=== PATIENT | female | born 1975 | race Caucasian/White ===

== ENCOUNTER 2018-03-11 10:23 | Day surgery (SDC) | payer OTHER ==
[2018-03-09 15:07] LABS: Absolute Lymphocytes (CBC) 2.9 K/uL (0.7-4.9); Absolute Monocytes 0.7 K/uL (0.1-1.3); Absolute Neutrophil 5.5 K/uL (1.8-8.0); Basophils % 0.2 % (0-1.3); Eosinophils % 0.6 % (0-4.4); Hematocrit 39.9 % (36.0-45.0); Lymphocytes % 31.5 % (15.3-44.8); MCH 31.4 pg (27.0-35.0); MCV 94.7 fL (80-100); MPV 9.3 fL (7.6-11.3); Monocytes % 7.2 % (3.3-12.3); RBC Red Blood Cell Count 4.21 M/uL (3.86-4.86)
[2018-03-09 15:19] LABS: BUN Blood Urea Nitrogen 20 mg/dL (6-20); Bicarbonate 27 mEq/L (21-31); Glucose Level 75 mg/dL (65-120); Sodium Level 135 mEq/L (135-145)
[2018-03-11] MEDS ORDERED: CEFAZOLIN/SWI 1gm 1 GM/10 ML SYR ONE (10:33)
[2018-03-11] MEDS ORDERED: Ringers Lactate 1,000 ML IV ONE (10:33)
[2018-03-11] MEDS ORDERED: PROPOFOL 200 MG/20 ML VIAL IV ONE (12:04)
[2018-03-11] MEDS ORDERED: FENTANYL CITR 100 MCG/2 ML ONE (12:04)
[2018-03-11] MEDS ORDERED: ROCURONIUM 50 MG/5 ML VIAL IV ONE (12:05)
[2018-03-11] MEDS ORDERED: ONDANSETRON HCL 40 MG/20 ML VIAL ONE (12:05)
[2018-03-11] MEDS ORDERED: MIDAZOLAM HCL 2 MG/2 ML INJ ONE (12:05)
[2018-03-11] MEDS ORDERED: LIDOCAINE 1% MPF 2 ML AMPULE ONE (12:05)
[2018-03-11] MEDS ORDERED: BUPIVACA 0.5%/EPI 0.0005%/PF 10 ML VIAL ONE (12:35)
[2018-03-11] MEDS ORDERED: DEXAMETHASONE 10 MG/ML VIAL ONE (12:40)
[2018-03-11] MEDS ORDERED: EPHEDRINE SULF 50 MG/5 ML SYR ONE (13:17)
--- NOTE | 2018-03-11 13:46 | P.BOP ---
Preoperative diagnosis: right shoulder pain/impingement/partial RCT Postoperative diagnosis: same Primary procedure: right shoulder arthoscopy/debridemtent/ miniopen sad/rcr Estimated blood loss: 10ccs Findings: as above Anesthesia: General Transferred to: Recovery Room Condition: Good
[2018-03-11] MEDS: MEPERIDINE HCL 50 MG/ML AMP ONE ×2 (14:15→14:22)
--- NOTE | 2018-03-11 14:26 | OP ---
Date of Procedure: 03/11/2018 Surgeon: Toan Leonard MD Preoperative Diagnosis: Right shoulder pain with impingement, probable partial rotator cuff tear. Postoperative Diagnosis: Right shoulder pain with impingement, probable partial rotator cuff tear. Procedure: Right shoulder arthroscopic debridement with mini open subacromial decompression and plac ement of stitch into the rotator cuff. Estimated Blood Loss: 10 cc. Complications: There were no complications. Specimens: No pathology specimen. Indication For Operation: Ms. Win is a 42-year-old female, who has had problems with her shoulder for a quite sometime. This persisted despite extensive rehabilitative efforts and also including inj ections and medications. All risks, benefits, and alternatives have been discussed with her. She st ates she understands everything as presented and wishes to proceed. Description Of Procedure: The patient was taken to the operating room and placed in supine position. General anesthesia was obtained by staff. Following this, she was then placed in a beach chair pos ition with anesthesia being careful to position the head and neck properly. All her bony prominences were checked. Following this, the right upper extremity was then prepped and draped in the usual st erile fashion for the procedure. Standard posterior arthroscopy portals were made carefully atraumat ically with 1 pass, which allowed for examination of the shoulder. Shoulder was examined and found t o be some fraying of the biceps anchor, both anterior and posterior to the biceps anchor. Also, ther e was some slight fraying of the undersurface of the rotator cuff. An anterior portal was then made under direct vision with care being taken to remain lateral to the coracoid. Through this portal, sa me was used to debride the frayed area of the biceps and undersurface of the rotator cuff; however, t here was no indication of the biceps and otherwise doing quite well. There was no tenotomy even cons idered. Following this, the arthroscopic instruments were removed. The posterior arthroscopy portal was stapled shut. The arm was then re-prepped, and all gloves and instruments were changed. A gloria dard anterior incision was then taken down carefully through skin and soft tissues. Meticulous hemos tasis being maintained using Bovie electrocautery. This leads down to the acromion. A small portion of the deltoid was then removed from the acromion and the coracoacromial ligament was divided. This allowed for visualization of the subacromial space, which does have quite an extensive amount of bur celina tissue, which was then removed. Once the bursal tissue was removed, an anterior acromioplasty wa s performed followed by subacromial acromioplasty. This was done until the outlet was very smooth wi thout sign of any downward slope or obstruction. After this, the rotator cuff itself was explored th roughout its entire footprint and no obvious rotator cuff tear was seen. There did appear to be an a nora anteriorly, which may have some feeling of decreased strength and an Ethibond suture was then meghna adonis in this area. It is cut short and continued to be observed. No other areas were easily seen. T he deltoid was then repaired back to the acromion via bone tunnel and Ethibond followed by over-sewin g with Vicryl. Skin was then closed with Vicryl followed by anthony. The Marcaine with epinephrine was then placed throughout the incisions and the patient was placed in a well-padded sterile dressing as well as shoulder immobilizer, awakened, and taken to recovery room in good condition. There were no complications. /LAURA Voice ID: [id number] Report ID: [id number]
[2018-03-11] MEDS: MORPHINE 4 MG/ML SYR ONE ×2 (14:30→14:35)
[2018-03-11] MEDS ORDERED: HYDROCODONE/APAP 5/325 MG TAB ONE (15:30)
== END 2018-03-11 16:00 | disposition home or self-care (01) ==
LOC: OR 10:23
PROVIDERS: ATTEND Orthopaedic Surgery
PROC: 0LQ10ZZ Repair Right Shoulder Tendon, Open Approach (ICD-10-PCS; 2018-03-11)
PROC: 0RNJ0ZZ Release Right Shoulder Joint, Open Approach (ICD-10-PCS; 2018-03-11)
PROC: 0RBJ4ZZ Excision of Right Shoulder Joint, Percutaneous Endoscopic Approach (ICD-10-PCS; principal; 2018-03-11 12:30)
DX: M75.111 Incomplete rotator cuff tear or rupture of right shoulder, not specified as traumatic (principal); M75.41 Impingement syndrome of right shoulder; D68.51 Activated protein C resistance
CPT/HCPCS: 36415; 80048; 81025; 85025; J0690; J1100; J2001; J2175; J2250; J2405; J3010